=== PATIENT | female | born 1985 | race Caucasian/White ===

== ENCOUNTER 2018-06-19 22:03 | Inpatient (IN) | payer OTHER ==
[2018-06-19 22:41] VITALS: BMI 34.7
[2018-06-19] MEDS ORDERED: Ondansetron PF 4 MG/2 ML Vial IVP PRN (22:50)
[2018-06-19] MEDS ORDERED: CEFAZOLIN 2 GM/50 ML BAG ONE (22:54)
[2018-06-19] MEDS ORDERED: Bicitra 30 ML UDCUP ONE (22:55)
[2018-06-19] MEDS ORDERED: Morphine PF 1 MG/ML SYR ONE (22:56)
[2018-06-19] MEDS ORDERED: Ondansetron PF 4 MG/2 ML Vial ONE (22:57)
[2018-06-19] MEDS ORDERED: Dexamethasone 4 mg/ml Vial ONE (22:57)
[2018-06-19] MEDS ORDERED: Ketorolac Tromethamine 30 MG/ML VIAL ONE (22:57)
[2018-06-19] MEDS ORDERED: diphenhydrAMINE 50 MG/ML VIAL ONE (22:57)
[2018-06-19] MEDS ORDERED: Oxytocin 10 UNITS/ML VIAL ONE (22:57)
[2018-06-19] MEDS ORDERED: PHENYLEPHRINE-NS 100 MCG/ML 10 ML SYRINGE ONE (22:57)
[2018-06-19] MEDS ORDERED: Lidocaine 1% PF 5 ML VIAL ONE (22:57)
[2018-06-19] MEDS ORDERED: Bupivacaine 0.75% W/DEXTROSE 8.25% 2 ML AMP ONE (22:57)
[2018-06-19] MEDS ORDERED: Bicitra 30 ML UDCUP PO SCH (23:00)
[2018-06-19] MEDS ORDERED: CEFAZOLIN/Water 2 GM/20 ML SYRINGE SLOW IVP SCH (23:00)
[2018-06-19 23:02] LABS: Hemoglobin 13.2 g/dL (12.0-16.0); Mean Corpuscular Hemoglobin 32.6 pg (27.0-31.0); Mean Corpuscular Volume 93.2 fL (78.0-98.0); Mean Platelet Volume 10.3 fL (7.4-10.4); Platelet Count 163 thou/uL (130-400); RBC Distribution Width 13.1 % (11.5-14.5); Red Blood Cell (RBC) Count 4.05 mill/uL (4.20-5.40); White Blood Cell (WBC) Count 10.1 thou/uL (4.8-10.8)
[2018-06-19] MEDS ORDERED: CEFAZOLIN 2 GM/50 ML-DEXTROSE 2 GM in Premix Bag 1 BAG IVPB SCH (23:15)
[2018-06-19 23:42] LABS: Syphilis Antibody Nonreactive (Nonreactive); Syphilis Antibody Index 0.04 S/CO (<1.00 Non-Reactive)
[2018-06-19 23:44] LABS: HBSAg Index 0.15 S/CO (0-0.99); Hep B Surf Ag Non-Reactive S/CO (NonReactive)
--- NOTE | 2018-06-20 00:37 | PDOC.LDHP ---
Labor and Delivery H&P Chief complaint: loss of fluid HPI: 33yo at 38w2d by first trimester sono c/o SROM 830pm clear, copious. No painful ctx, good FM. Current gestational age (weeks): 38 Due date: 07/01/18 Dating criteria: first trimester ultrasound Grav: 3 Para: 2 Current complications: none Abnormal US findings: No Past Medical History: denies Current medications: pre-sera vitamins Previous surgical history: none Allergies/Adverse Reactions: Allergies Allergy/AdvReac Type Severity Reaction Status Date / Time Penicillins Allergy Verified 04/13/17 23:27 Social history: none - Physical Exam Vital signs reviewed and normal: yes General: NAD Heart: RRR Lungs: CTAB Abdomen: gravid Extremeties: no edema FHT: category 1 - Vaginal Exam cm dilated: 3 Effacement: 50% Station: -3 - OB Labs Blood type: A RH: negative Antibody Screen: negative HIV: negative RPR: negative HEPSAg: negative 1 hour GCT: negative GBS: negative Urine drug screen: not done Rubella: immune - Assessment L&D Assessment: term rupture in membranes FH of breast cancer and desires permanent sterilization - Plan Plan: admit to L&D, to OR for section, informed consent obtained, anesthesia consult for pain management -: To OR for CS for Breech presentation for TPROM Patient has been approved for risk reducing bilateral salpingectomy for risk reduction and sterilization. Understands the procedure is permanent and not reversible and she will no longer be able to conceive children naturally.
--- NOTE | 2018-06-20 00:40 | PDOC.OPDEL ---
OB Operative/Delivery Note Delivery Dr/Surgeon: Mera Assist: Pallavi PGY2 Pre-Delivery Diagnosis: breech, ruptured membrane Procedure/Post Delivery Dx: primary low transverse CS (and risk reducing bilateral salpingectomy) Weeks gestation: 38 Anesthesia: spinal - Findings A Sex: female - 1 min: 9 - 5 min: 9 - Additional Findings/Plan Placenta delivered: spontaneous findings: low transverse hysterotomy without extension, normal uterus, normal tubes, normal ovaries Estimated blood loss: 400cc qbl pending Compilations/Other Findings: complete breech presentation Post delivery plan: routine recovery
[2018-06-20] MEDS ORDERED: HYDROmorphone 2 MG/ML VIAL SLOW IVP PRN (00:44)
[2018-06-20] MEDS ORDERED: Naloxone HCl 0.4 mg/ml Vial IV PRN (00:44)
[2018-06-20] MEDS ORDERED: Promethazine HCl 25 MG/ML VIAL IM PRN (00:44)
[2018-06-20] MEDS ORDERED: Naloxone HCl 0.4 mg/ml Vial IVP PRN ×2 (00:44)
[2018-06-20] MEDS ORDERED: L&D-Morphine 4 MG/ML VIAL SLOW IVP PRN (00:44)
[2018-06-20] MEDS ORDERED: Promethazine HCl 25 MG SUPP PR PRN (00:44)
[2018-06-20] MEDS ORDERED: Eucerin (Mineral Oil/Petrolatum,White) 30 gm Jar TOP PRN (00:44)
[2018-06-20] MEDS ORDERED: Ondansetron PF 4 MG/2 ML Vial IVP PRN ×2 (00:44→03:43)
[2018-06-20] MEDS ORDERED: Meperidine HCl/PF 25 MG/ML VIAL SLOW IVP PRN (00:44)
[2018-06-20] MEDS ORDERED: Ondansetron HCl/PF 4 MG/2 ML Vial IVP PRN (00:44)
[2018-06-20] MEDS ORDERED: diphenhydrAMINE 50 MG/ML VIAL IVP PRN (00:44)
[2018-06-20] MEDS ORDERED: Ketorolac Tromethamine 30 MG/ML VIAL IVP PRN (00:44)
[2018-06-20] MEDS ORDERED: Communication Order-Pharmacy FS SCH (00:45)
[2018-06-20] MEDS ORDERED: Hydrocerin (Eucerin) Cream 120 gm Jar TOP PRN (01:01)
[2018-06-20] MEDS ORDERED: Acetaminophen 325 MG TAB PO PRN (03:43)
[2018-06-20] MEDS ORDERED: Adacel (T-DAP) 0.5 ML VIAL IM ONE (03:43)
[2018-06-20] MEDS ORDERED: diphenhydrAMINE 25 MG CAP PO PRN (03:43)
[2018-06-20] MEDS ORDERED: Bisacodyl 10 MG SUPP PR PRN (03:43)
[2018-06-20] MEDS ORDERED: Lanolin Ointment 7 GM TUBE TOP PRN (03:43)
[2018-06-20] MEDS ORDERED: NS / Oxytocin 40 units/1000ml 0 ML ONE (04:05)
--- NOTE | 2018-06-20 04:45 | OP ---
DATE OF OPERATION: 06/20/2018 PREOPERATIVE DIAGNOSES: 1. Intrauterine at 38 weeks and 2 days. 2. Term premature rupture of membranes. 3. Breech presentation. 4. Family history of breast cancer. 5. Desires sterilization. POSTOPERATIVE DIAGNOSES: 1. Intrauterine at 38 weeks and 2 days. 2. Term premature rupture of membranes. 3. Breech presentation. 4. Family history of breast cancer. 5. Desires sterilization. PROCEDURES: Primary low-transverse section via Pfannenstiel skin incision and bilateral ris k-reducing salpingectomy. ANESTHESIA: Spinal. ATTENDING SURGEON: Christa Tesfaye M.D. LEARNING OFFICER: Dr. Lewis PGY-2. ESTIMATED BLOOD LOSS: 400 mL. QBL: Pending. INTRAVENOUS FLUIDS: 1600 mL crystalloid. URINE OUTPUT: 300 mL of clear urine. COMPLICATIONS: None. DRAINS: Velez catheter. PATHOLOGY: Bilateral fallopian tubes. FINDINGS: Female infant, complete breech presentation, clear amniotic fluid, Apgars 9 and 9, weight is 7 pounds 8 ounces. Hysterotomy without extension. Normal uterus, ovaries, and fallopian tubes bi laterally. OPERATIVE TECHNIQUE: Patient was taken to the operating room where spinal anesthesia was obtained wi [facility]. Patient was prepped and draped in a sterile fashion in the dorsal supine position with leftward tilt. After ensuring adequacy of anesthesia, Pfannenstiel skin incision was made and c arried down to the underlying subcutaneous tissue with the Bovie. The fascia was nicked in the midli ne with the Bovie and carried laterally with the Cavazos scissors. The superior aspect of the fascia wa s tented with 2 Kochers and dissected off the rectus bluntly. The inferior aspect of the fascia was tented with 2 Kochers and dissected off the rectus down to the pubic symphysis. The peritoneum was b luntly entered into and manually retracted. Kadeem O retractor was placed. The lower uterine segmen t was incised in a transverse fashion, extended with the Murray maneuver. The breech was brought to th e hysterotomy and delivered with fundal pressure down to the scapula. The arms were then delivered w ith a sweeping motion over the anterior chest and the head was flexed with fundal pressure and delive red atraumatically. Delayed cord clamping was performed. The cord was clamped and infant handed to awaiting keenan team. Cord blood was obtained. The placenta was allowed to spontaneously deliver. The uterus was exteriorized, cleared of all clots and debris and posterior cul-de-sac was lapped out. T he uterus was placed back into the abdomen and the hysterotomy was repaired with a #1 Monocryl in a r unning locking fashion with excellent hemostasis. A moist lap was placed over the hysterotomy and th e uterus was again delivered out of the abdomen. The left fallopian tube was grasped with a [place] and elevated. Several windows were made in the mesosalpinx, leaving the perforating vessels to the f allopian tube remaining. These vessels were then clamped with Kanwal clamps along with the proximal p ortion of the fallopian tube clamped across the [place]baums were then used to incise the fallopian tu be and the mesosalpinx, and the tube was completely transected and sent for final pathology. These c lamps were then tied with a free tie of 2-0 plain gut with excellent hemostasis noted. The same proc edure was carried out on the right side and hemostasis was noted to be excellent. The uterus was lilli mya back into the abdomen. The pelvis and pericolic gutters were irrigated. Hemostasis was noted of the hysterotomy. The Kadeem O retractor was removed out of the abdomen. The peritoneum was reappro ximated with a 2-0 chromic in a running fashion. The rectus muscles were examined and noted to be he mostatic. The fascia was reapproximated with #1 PDS x1 suture with excellent reapproximation. The s ubcutaneous tissue was irrigated and cauterized of any bleeders, reapproximated with 2-0 plain gut in a running fashion. Skin was closed with 4-0 Monocryl in subcuticular fashion. Dermabond was applie d as well as a pressure dressing. Patient tolerated the procedure well. Sponge, lap, needle count w ere correct x2. The patient was taken to recovery room in stable condition. Patient received Ancef 2 grams prior to procedure.
[2018-06-20] MEDS: Ibuprofen 800 MG TAB PO SCH ×3 (06:39→21:14)
--- NOTE | 2018-06-20 07:54 | PDOC.PP ---
Post Progress Note Post Day #: 0 PO intake tolerated: no Flatus: no Ambulation: no Vital Signs (12 hours) Temp Pulse Resp BP Pulse Ox 06/20/18 04:05 98.7 F 72 18 114/64 98 Weight Weight 190 lb - Physical Examination General: NAD Cardiovascular: RRR Respiratory: non-labored breathing Abdominal: no distention, appropriately TTP Fundus firm & at: umb Extremities: negative homans (B) Skin: CS incision dry & intact, no rash Psychiatric: normal affect Result Diagrams: 06/19/18 22:45 Additional Labs: Post Labs Blood Type A NEGATIVE 06/19/18 22:45 Hep Bs Antigen Non-Reactive S/CO (NonReactive) 06/19/18 22:45 - Assessment/Plan POD1 s/p PCS & RRS for breech, TPROM at 38w VSSAF Doing well, routine advances, pain controlled, start po meds today. Hgb pending from surgery, QBL 300cc Rh neg rhogam screening, RImm Cont postop care.
[2018-06-20] MEDS: Docusate Calcium (SURFAK) 240 MG CAP PO SCH ×2 (09:32→21:14)
[2018-06-20] MEDS: Simethicone Chewable 80 MG TAB PO PRN ×2 (09:32→21:14)
[2018-06-20] MEDS: HYDROcodone/Acetaminophen 5/325 mg Tablet PO PRN (09:33)
[2018-06-20] MEDS: Prenatal Vitamin 1 TAB PO SCH (09:35)
[2018-06-20] MEDS: Ferrous Sulfate 325 MG TAB PO SCH ×2 (09:35→19:04)
[2018-06-20] MEDS ORDERED: HYDROcodone/Acetaminophen 5/325 mg Tablet PO PRN (12:45)
[2018-06-21] MEDS: Ibuprofen 800 MG TAB PO SCH (05:20)
[2018-06-21] MEDS: HYDROcodone/Acetaminophen 5/325 mg Tablet PO PRN (05:21)
[2018-06-21 05:46] LABS: Hemoglobin 12.2 g/dL (12.0-16.0); Mean Corpuscular HGB CONC 33.3 g/dL (32.0-36.0); Mean Corpuscular Hemoglobin 31.6 pg (27.0-31.0); Mean Platelet Volume 10.7 fL (7.4-10.4); Platelet Count 133 thou/uL (130-400); RBC Distribution Width 13.2 % (11.5-14.5); Red Blood Cell (RBC) Count 3.87 mill/uL (4.20-5.40); White Blood Cell (WBC) Count 12.9 thou/uL (4.8-10.8)
[2018-06-21 07:36] VITALS: BP 105/59; TEMP 98.2
--- NOTE | 2018-06-21 09:27 | PDOC.PP ---
Post Progress Note Post Day #: 2 PO intake tolerated: yes Flatus: yes Ambulation: yes Vital Signs (12 hours) Temp Pulse Resp BP Pulse Ox 06/21/18 07:35 98.2 F 79 20 105/59 L 99 06/21/18 05:20 98.1 F 86 16 100/58 L 06/21/18 00:30 98.1 F 85 16 106/51 L Weight Weight 190 lb - Physical Examination General: NAD Respiratory: non-labored breathing Abdominal: no distention, appropriately TTP Fundus firm & at: umb-2 Extremities: negative homans (B) Skin: CS incision dry & intact Neurological: no gross focal deficits Psychiatric: normal affect Result Diagrams: 06/21/18 05:35 Additional Labs: Post Labs Blood Type A NEGATIVE 06/19/18 22:45 Hep Bs Antigen Non-Reactive S/CO (NonReactive) 06/19/18 22:45 - Assessment/Plan POD2 s/p PCS and RRS for breech/sterilization VSSAF Hgb 12.2 following surgery, no sx anemia Met all postop milestones Rh neg s/p rhogam DC home FU 2 wk for inc check
[2018-06-21] MEDS: Docusate Calcium (SURFAK) 240 MG CAP PO SCH (09:30)
[2018-06-21] MEDS: Simethicone Chewable 80 MG TAB PO PRN (09:30)
[2018-06-21] MEDS: Prenatal Vitamin 1 TAB PO SCH (09:30)
[2018-06-21] MEDS: Ferrous Sulfate 325 MG TAB PO SCH (09:31)
== END 2018-06-21 13:30 | disposition home or self-care (01) | DRG 785 ==
LOC: L&D/OP 22:03 → L&D 22:41 → 3SW 06-20 03:53
PROVIDERS: ADMIT Student in an Organized Health Care Education/Training Program; ATTEND Student in an Organized Health Care Education/Training Program
PROC: 10D00Z1 Extraction of Products of Conception, Low, Open Approach (ICD-10-PCS; principal; 2018-06-20)
PROC: 0UT70ZZ Resection of Bilateral Fallopian Tubes, Open Approach (ICD-10-PCS; 2018-06-20)
PROC: 3E0334Z Introduction of Serum, Toxoid and Vaccine into Peripheral Vein, Percutaneous Approach (ICD-10-PCS; 2018-06-20)
DX: O42.02 Full-term premature rupture of membranes, onset of labor within 24 hours of rupture (principal); Z3A.38 38 weeks gestation of pregnancy; Z37.0 Single live birth; O32.1XX0 Maternal care for breech presentation, not applicable or unspecified; Z30.2 Encounter for sterilization
CPT/HCPCS: 36415; 51702; 85027; 85461; 86780; 86850; 86900; 86901; 87340; 88302; 90384; 96372; 99285; J1100; J1200; J1885; J2001; J2274; J2405; J2590; J3490